=== PATIENT | female | born 1975 ===

== ENCOUNTER 2018-11-01 12:43 | Emergency (ER) | payer MEDICAID ==
[2018-11-01] MEDS ORDERED: Benzoin Compound Tincture (60 ml) ONE (14:20)
[2018-11-01 14:27] VITALS: BP 115/80; PULSE 79; RESP 20; TEMP 98.3
[2018-11-01 14:28] VITALS: O2SAT 98
--- NOTE | 2018-11-01 14:28 | C.PDOC ---
History Of Present Illness 43 year old female presents to the ED for evaluation of a laceration to the abdomen sustained 2 days ago. Patient reports she adjusted a bulky belt which ripped into her skin. Patient denies fever, chills, nausea, vomiting, abdominal pain, and any other associated symptoms. Time Seen by Provider: 11/01/18 13:10 Chief Complaint (Nursing): Abnormal Skin Integrity History Per: Patient History/Exam Limitations: no limitations Onset/Duration Of Symptoms: Days Current Symptoms Are (Timing): Still Present Past Medical History Reviewed: Historical Data, Nursing Documentation, Vital Signs Vital Signs: Last Vital Signs Temp 98.6 F 11/01/18 13:03 Pulse 88 11/01/18 13:03 Resp 18 11/01/18 13:03 BP 127/83 11/01/18 13:03 Pulse Ox 98 11/01/18 13:03 - Medical History PMH: Asthma, HIV Surgical History: Appendectomy Family History: States: Unknown Family Hx - Social History Hx Alcohol Use: Yes Hx Substance Use: Yes - Immunization History Hx Tetanus Toxoid Vaccination: No Hx Influenza Vaccination: Yes (2 weeks ago) Hx Pneumococcal Vaccination: No (2014) Review Of Systems Except As Marked, All Systems Reviewed And Found Negative. Constitutional: Negative for: Fever, Chills Gastrointestinal: Negative for: Nausea, Vomiting, Abdominal Pain Skin: Positive for: Other (laceration to the abdomen. ) Physical Exam - Physical Exam Appears: Non-toxic, No Acute Distress Skin: Warm, Dry, Other (mid-abdomen: 1.5 cm vertical wound dehiscence of the previous scar on the abdomen. (+) no puss. (+) no cellulitic changes.) Head: Atraumatic, Normacephalic Eye(s): bilateral: Normal Inspection ED Course And Treatment O2 Sat by Pulse Oximetry: 98 (RA) Pulse Ox Interpretation: Normal Procedure: Wound Repair - Procedure Procedure: Wound Repair: 1.5 cm laceration on the mid abdomen. - Consent Obtained Consent obtained: Verbal - Performed by Performed by: Attending Physician - Indications Indication(s):: Laceration - Location Shape:: Linear Depth:: Epidermis - Complexity Complexity:: Simple (one layer) (verticle.) - Wound repair method Heber:: Steri-strips - Patient tolerated procedure Patient Tolerated Procedure:: Well Medical Decision Making Medical Decision Making: Plan: -Toradol Progress/Update: Laceration cleaned with Betadine. Steri-strips used to oppose the wound. Patient advised to follow up with PMD within 1-2 days. Patient is stable for discharge home. Disposition Counseled Patient/Family Regarding: Studies Performed, Diagnosis, Need For Followup - Disposition Referrals: [facility] [Outside] Disposition: HOME/ ROUTINE Disposition Time: 14:26 Condition: STABLE Instructions: Wound Dehiscence (DC) Forms: [employer] [facility] (Sudanese), General Discharge Instructions - POA Present On Arrival: None - Clinical Impression Clinical Impression: Dehiscence of closure of skin - Scribe Statement The provider has reviewed the documentation as recorded by the Scribe (Ivy Townsend) Provider Attestation: All medical record entries made by the Scribe were at my direction and personally dictated by me. I have reviewed the chart and agree that the record accurately reflects my personal performance of the history, physical exam, medical decision making, and the department course for this patient. I have also personally directed, reviewed, and agree with the discharge instructions and disposition.
== END 2018-11-01 14:33 | disposition home or self-care (01) ==
LOC: C.ER 12:43
DX: T81.30XA Disruption of wound, unspecified, initial encounter (principal)
CPT/HCPCS: 96372; 99283; J1885